=== PATIENT | female | born 2000 | race African-American/Black ===

== ENCOUNTER 2024-01-17 04:13 | Inpatient (IN) | payer BC ==
[2024-01-17] MEDS ORDERED: METHYLERGONOVINE 0.2 MG/ML 1 ML AMP IM PRN (04:26)
[2024-01-17] MEDS ORDERED: miSOPROStoL 200 MCG TAB PO PRN (04:26)
[2024-01-17] MEDS ORDERED: LIDOCAINE 0.5% (PF) 5 MG/ML (50 ML SDV) SQ PRN (04:26)
[2024-01-17] MEDS ORDERED: OXYTOCIN 10 UNIT/ML 1 ML VIAL IM PRN (04:26)
[2024-01-17] MEDS ORDERED: CARBOPROST TROMETHAMINE 250 MCG/ML 1 ML AMP IM PRN (04:26)
[2024-01-17] MEDS ORDERED: TRANEXAMIC 1,000 MG/100ML-NACL 1,000 MG in EMPTY BAG 1 BAG IV PRN (04:26)
[2024-01-17] MEDS ORDERED: TERBUTALINE 1 MG/ML VIAL SQ PRN (04:26)
[2024-01-17] MEDS ORDERED: OXYTOCIN 30 UNITS/500 ML NS 30 UNIT in SALINE 1 500ML.BAG IV SCH (04:30)
[2024-01-17] MEDS: LACTATED RINGERS 1,000 ML IV SCH (05:00)
[2024-01-17] MEDS: PENICILLIN G POTASSIUM 5,000,000 UNIT in DEXTROSE 5% IN WATER 100 ML IVPB STA (05:08)
[2024-01-17 05:16] LABS: Appearance,Urine Cloudy (Clear); Bacteria,Urine Moderate /hpf; Bilirubin,Urine Negative (Negative); Blood,Urine Trace (Negative); Color,Urine Colorless; Glucose,Urine (UA) Negative (Negative); Hyaline Casts,Urine 1 /lpf (0-2); Ketones,Urine Negative (Negative); Leukocyte Esterase,Urine Large (Negative); Mucus,Urine Rare /hpf; Nitrite,Urine Negative (Negative); Protein,Urine Negative (Negative); RBC,Urine 4 /hpf (0-5); Specific Gravity,Urine 1.011 (1.001-1.035); Squamous Epithelial Cell,Urine 8 /hpf (0-4); Urobilinogen,Urine <2.0 mg/dL (<2.0); WBC,Urine 110 /hpf (0-5)
[2024-01-17 05:17] LABS: Amphetamine Screen,Urine Not Detected (NotDetected); Barbiturate Screen,Urine Not Detected (NotDetected); Benzodiazepines Screen,Urine Not Detected (NotDetected); Cocaine Screen,Urine Not Detected (NotDetected); Methadone Screen, Urine Not Detected (NotDetected); Opiate Screen,Urine Not Detected (NotDetected); Oxycodone Screen, Urine Not Detected (NotDetected); Phencyclidine Screen,Urine Not Detected (NotDetected); Tricyclic Antidepressant,Urine Not Detected (NotDetected); Urn Cannabinoid Scrn Not Detected (NotDetected)
[2024-01-17 05:17] LABS: Basophils % (A) 0 %; Eosinophils % (A) 1 %; HGB 9.9 gm/dL (11.4-16.0); Lymphocytes # (A) 1.1 k/uL (1.0-4.8); Lymphocytes % (A) 22 %; MCH 28.4 pg (25.0-35.0); MCHC 31.9 g/dL (31.0-37.0); MCV 89.1 fL (80.0-100.0); Mean Platelet Volume 9.8; Monocytes # (A) 0.4 k/uL (0-1.0); Monocytes % (A) 8 %; Neutrophils # (A) 3.4 k/uL (1.3-7.7); Neutrophils % (A) 67 %; Platelet Count 160 k/uL (150-450); RBC 3.47 m/uL (3.80-5.40); RDW 13.9 % (11.5-15.5)
[2024-01-17] MEDS ORDERED: fentaNYL (PF) 50 MCG/ML 5 ML AMP ONE (05:33)
[2024-01-17] MEDS ORDERED: SODIUM CHLORIDE 0.9% 250 ML BAG ONE (05:33)
[2024-01-17] MEDS ORDERED: ROPIVACAINE 5 MG/ML 30 ML VIAL ONE (05:33)
[2024-01-17] MEDS: PENICILLIN G POTASSIUM 2,500,000 UNIT in DEXTROSE 5% IN WATER 100 ML IVPB SCH (09:15)
[2024-01-17 09:36] LABS: Hepatitis B Surface Antigen Nonreactive (Nonreactive)
--- NOTE | 2024-01-17 10:07 | P.MSEPDOC ---
Presenting Problems - Arrival Data Date of Arrival on Unit: 01/17/24 Time of Arrival on Unit: 04:20 Mode of Transport: Stretcher - Complaint OB-Reason for Admission/Chief Complaint: Possible Onset of Labor Medical History - Information : 5 Para: 3 Term: 3 : 0 Abortions: Spontaneous or Elective: 1 Number of Living Children: 3 - Gestational Age Gestational Age by JOHN (wks/days): 38 Weeks and 3 Days Review of Systems - Review of Systems Constitutional: No problems Breast: No problems ENT: No problems Cardiovascular: No problems Respiratory: No problems Gastrointestinal: No problems Genitourinary: No problems Musculoskeletal: No problems Neurological: No problems Skin: No problems Vital Signs - Temperature Temperature: 97.0 F Temperature Source: Temporal Artery Scan - Pulse Right Pulse Rate: 95 Pulse Assessment Method: Pulse Oximetry - Respirations Respiratory Rate: 17 Oxygen Delivery Method: Room Air O2 Sat by Pulse Oximetry: 96 - Blood Pressure Right Arm Blood Pressure: 112/57 Blood Pressure Mean: 75 Blood Pressure Source: Automatic Cuff Medical Screen Scoring - Cervical Exam Dilation (cm): 5.5 Effacement (%): 80 Station: -2 Membranes: Intact - Uterine Contractions Frequency From (mins): 2 Frequency To (mins): 3 Duration From (seconds): 60 Duration To (seconds): 80 Intensity: Moderate Resting: Soft to palpation - Assessment - Baby A Baseline FHR: 140 Heart Rate - NICHD Category: Category I (Normal) NST: Reactive Physician Notification - Physician Notified Physician Notified Date: 01/17/24 Physician Notified Time: 04:13 Physician: Jolanta Dubois New Order Received: (Admit) Maternal Triage Index - Maternal Triage Index Presenting for scheduled procedure w/no complaint: No - Stat/Priority 1 Stat Priority 1: No - Urgent/Priority 2 Urgent Priority 2: Yes Provider Notified: Silvino Provider Notified Time: 04:13 Criteria Met for Priority 2: regular ctx Disposition - Disposition OB Disposition: Admit Transferred to:: [facility] I agree with the RN Medical Screening Exam: Yes Physician's MSE Comment: I have neither seen nor examined the patient Case reviewed; plan agreed upon as documented in EMR&OBIX.: Yes Diagnosis: MATERNAL CARE FOR PROBLEM, UNSP, THIRD * DO NOT USE *
--- NOTE | 2024-01-17 10:12 | P.HPOB ---
History of Present Illness H&P Date: 01/17/24 Chief Complaint: contractions Ms. Jackson is a 23 year old at 38 weeks and 3 days with EDC of 01/27/2023 by early US who presents to L&D with regular, painful contractions and is found to be dilated to 5 centimeters with a bulging bag. The patient has received regular care in [facility]. She moved to [place] within the past week. Her records are not available for review at this time, but a release of records has been sent. She does believe that she is GBS positive. She has also been anemic throughout the . Obstetric history: 3 full-term vaginal delivery, no complications during or delivery Past medical history: Patient denies Medications: vitamins, iron Past surgical history: I&D of pilonidal cyst x2 Past Medical History Additional Past Medical History / Comment(s): GDM x2 previous pregnancies History of Any Multi-Drug Resistant Organisms: None Reported Additional Past Surgical History / Comment(s): pilonidal cyst x2 Past Anesthesia/Blood Transfusion Reactions: No Reported Reaction Past Psychological History: No Psychological Hx Reported Smoking Status: Never smoker Past Alcohol Use History: None Reported Past Drug Use History: None Reported Medications and Allergies Home Medications Medication Instructions Recorded Confirmed Type Vit No.179/Iron/Folic 1 each PO DAILY 01/17/24 01/17/24 History [ Tablet] Allergies Allergy/AdvReac Type Severity Reaction Status Date / Time No Known Allergies Allergy Verified 01/17/24 04:16 Exam Vital Signs Temp Pulse Resp BP Pulse Ox 01/17/24 04:15 97.0 F L 95 17 112/57 96 Intake and Output 01/16/24 01/17/24 01/17/24 22:59 06:59 14:59 Output Total 30 Balance -30 Output: Urine 30 Other: # Voids 1 Weight 76.204 kg Focused physical exam is performed. This is a healthy-appearing in no apparent distress. Breathing is non-labored. Abdomen is gravid and non-tender. Cervical exam is 8.5 cm, 90% effacement, -2 station. A forebag is appreciated and ruptured with clear fluid noted. Extremities non-tender and non- edematous. heart tones are Category I and tocometer is graphing contractions every 2-4 minutes. Results Result Diagrams: 01/17/24 04:50 01/17/24 04:50 Abnormal Lab Results - Last 24 Hours (Table) 01/17/24 01/17/24 01/17/24 Range/Units 04:10 04:50 04:50 RBC 3.47 L (3.80-5.40) m/uL Hgb 9.9 L (11.4-16.0) gm/dL Hct 31.0 L (34.0-46.0) % Urine Appearance Cloudy H (Clear) Urine Blood Trace H (Negative) Ur Leukocyte Esterase Large H (Negative) Urine WBC 110 H (0-5) /hpf Ur Squamous Epith Cells 8 H (0-4) /hpf Urine Bacteria Moderate H (None) /hpf Urine Mucus Rare H (None) /hpf Rubella IgG Antibody 49.10 H (0.00-9.00) IU/mL Assessment and Plan Assessment: 23 year old at 38 weeks and 3 days in active labor Plan: Admit, clear liquid diet, s/p 2 doses of PCN for GBS ppx, s/p epidural, s/p SROM followed by rupture of forebag, expectant management, continuous EFM and tocometer. Anticipate vaginal delivery.
[2024-01-17] MEDS ORDERED: diphenhydrAMINE 50 MG CAP PO PRN (11:21)
[2024-01-17] MEDS ORDERED: SIMETHICONE 80 MG CHEWABLE PO PRN (11:21)
[2024-01-17] MEDS ORDERED: LANOLIN CREAM 1 GM TUBE TOPICAL PRN (11:21)
[2024-01-17] MEDS ORDERED: BENZOCAINE/MENTHOL SPRAY 1 GM/SPRAY AEROSOL TOPICAL PRN (11:21)
[2024-01-17] MEDS ORDERED: diphenhydrAMINE 50 MG/ML 1 ML VIAL IVP PRN ×2 (11:21)
[2024-01-17] MEDS ORDERED: ACETAMINOPHEN TAB 325 MG TAB PO PRN (11:21)
[2024-01-17] MEDS ORDERED: ZOLPIDEM 5 MG TAB PO PRN (11:21)
[2024-01-17] MEDS ORDERED: diphenhydrAMINE 25 MG CAP PO PRN (11:21)
[2024-01-17] MEDS ORDERED: IBUPROFEN 600 MG TAB PO PRN (11:21)
[2024-01-17] MEDS ORDERED: HYDROCORTISONE 2.5% RECTAL CREAM 30 GM TUBE RECTAL PRN (11:21)
--- NOTE | 2024-01-17 11:21 | P.PROBDLV ---
Vaginal Delivery Note - . Vaginal Delivery Note: DATE OF SERVICE: 01/17/2024 PROCEDURE: Normal Vaginal Delivery ATTENDING: Dr. Jolanta Dubois MD ESTIMATED BLOOD LOSS: 100 mL FINDINGS: VMI, Apgars 9/9. Weight 3545 grams (7#13oz) PROCEDURE: Ms. Jackson is a 23 year old at 38 weeks and 3 days by early US presenting to labor and delivery in labor. She received care in [place] and just moved to [place]. The has been complicated by ultrasound finding of clubbed feet. Otherwise, the patient denies any complications. Records are not available for reivew at this time. SROM occurred at 817 revealing clear amniotic fluid. The patient received epidural anesthesia per her request. The patient was completely dilated at 1034. She pushed effectively with Category II FHTs. A viable male was delivered at 1105 without difficulty. The was placed on the maternal abdomen and bulb suctioned. The infant was noted to be spontaneously crying. Cord was clamped and cut after a 2-minute delay. The was handed off to the pediatric team. Placenta was delivered whole with gentle cord traction at 1109. Oxytocin was started to facilitate uterine tone. Uterine fundus was found to be firm and below the umbilicus upon fundal massage. Thorough examination of the cervix, vagina, periurethral area, and perineum revealed no lacerations. The patient is stable and allowed to begin the bonding process.
[2024-01-17] MEDS: IBUPROFEN ORAL SUSP 100 MG/5 ML CUP PO PRN (13:37)
[2024-01-17 17:12] VITALS: TEMP 98.3
[2024-01-17] MEDS: ACETAMINOPHEN ORAL SUSP 160 MG/5 ML CUP PO PRN (19:14)
[2024-01-17] MEDS: SENNOSIDES-DOCUSATE SODIUM 1 EACH TAB PO SCH (19:16)
[2024-01-18 05:50] LABS: Basophils % (A) 0 %; Eosinophils % (A) 1 %; HCT 25.8 % (34.0-46.0); HGB 8.6 gm/dL (11.4-16.0); Hypochromasia Slight; Lymphocytes % (A) 24 %; MCHC 33.4 g/dL (31.0-37.0); MCV 89.9 fL (80.0-100.0); Mean Platelet Volume 10.7; Monocytes # (A) 0.3 k/uL (0-1.0); Monocytes % (A) 6 %; Neutrophils # (A) 2.8 k/uL (1.3-7.7); Neutrophils % (A) 64 %; Platelet Count 114 k/uL (150-450); RBC 2.87 m/uL (3.80-5.40); RDW 14.2 % (11.5-15.5); WBC 4.3 k/uL (3.8-10.6)
[2024-01-18 08:33] VITALS: BP 106/69; PULSE 84; RESP 18
--- NOTE | 2024-01-18 10:05 | P.DS ---
Providers Date of admission: 01/17/24 04:30 Expected date of discharge: 01/18/24 Attending physician: Jolanta Dubois MD Primary care physician: Stated None Hospital Course: Ms. Jackson is a 23 year old now PPD#1 s/p normal spontaneous vaginal delivery. She had all her care in [place] and recently moved to [place] within the past week. She denied any complications during the except club feet noted on utlrasound. She was GBS positive and did receive 2 doses of Penicillin G prior to delivery. Her delivery was uncomplicated. The patient is doing well this morning and had no acute events overnight. She has no complaints this morning. She reports minimal lochia, passing flatus, voiding without difficulty, ambulating, and eating/drinking without nausea or vomiting. Infant doing well at bedside, s/p circumcision. She denies chest pain, shortness of breathing, fevers, or chills overnight. She denies pain or swelling in the legs. restrictions are reviewed with the patient including pelvic r est for 6 weeks. The patient is encouraged to call the office if she experiences any heavy bleeding, foul-smelling discharge, breast complaints, or any if she has any other concerns. She will follow up in the office in 6 weeks for exam. She will go home with Motrin and Tylenol as needed for pain. All questions are answered. Assessment: 23 year old PPD#1 s/p Patient Condition at Discharge: Good Plan - Discharge Summary Discharge Rx Participant: No New Discharge Prescriptions: New Ibuprofen [Motrin] 600 mg PO Q6HR PRN #30 tab PRN Reason: Mild Pain (Scale 1 To 3) Acetaminophen Tab [Tylenol] 650 mg PO Q6H PRN #30 tab PRN Reason: Mild Pain (Scale 1 To 3) No Action Vit No.179/Iron/Folic [ Tablet] 1 each PO DAILY Discharge Medication List Vit No.179/Iron/Folic [ Tablet] 1 each PO DAILY 01/17/24 [History] Acetaminophen Tab [Tylenol] 650 mg PO Q6H PRN #30 tab 01/18/24 [Rx] Ibuprofen [Motrin] 600 mg PO Q6HR PRN #30 tab 01/18/24 [Rx] Follow up Appointment(s)/Referral(s): Jolanta Dubois MD [STAFF PHYSICIAN] - 6 Weeks Activity/Diet/Wound Care/Special Instructions: Instructions 1. Do not begin any exercise program for 3 weeks. 2. Do not resume sexual relations for 6 weeks or longer if uncomfortable. 3. You may take tub baths or showers at any time. 4. You may use tampons if desired after 6 weeks. 5. Keep any areas repaired with stitches clean and dry. 6. If you are not nursing, wear a good fitting, supportive bra during the day and limit fluid intake for at least 1 week to prevent breast engorgement. 7. Call the office, , within the next week to make appointment for your 6 week checkup if it has not already been made. 8. Report any of the following occurrences to the doctor promptly: a. Heavy, excessive bleeding b. Chills, fever c. Burning or frequency of urination d. Pain or redness and breasts if nursing e. Increasing pain or swelling of vulva (stitches). In addition to the above instructions, the following additional should be followed: 1. No heavy lifting or straining (exercising) until after 6 week checkup. 2. Keep abdominal incision clean and dry: You may wear a dressing if more comfortable. 3. Make office appointment for 2 weeks after delivery date. Discharge Disposition: HOME SELF-CARE
[2024-01-18] MEDS: FERROUS SULFATE 325 MG TAB PO SCH (12:43)
[2024-01-18 15:55] LABS: HIV 2 AB Non-Reactive (Non-Reactive); HIV AB P24 Non-Reactive (Non-Reactive); HIV P24 AG Non-Reactive (Non-Reactive)
[2024-01-19 13:22] LABS: C. trachomatis,PCR Negative (Negative)
== END 2024-01-18 14:00 | disposition home or self-care (01) | DRG 807 ==
LOC: FBPOP 04:13 → 4FBP 04:30
PROVIDERS: ADMIT Obstetrics & Gynecology; ATTEND Obstetrics & Gynecology
PROC: 10907ZC Drainage of Amniotic Fluid, Therapeutic from Products of Conception, Via Natural or Artificial Opening (ICD-10-PCS; principal; 2024-01-17)
PROC: 10E0XZZ Delivery of Products of Conception, External Approach (ICD-10-PCS; principal; 2024-01-17)
DX: O99.824 Streptococcus B carrier state complicating childbirth (principal); O99.02 Anemia complicating childbirth; D64.9 Anemia, unspecified; O35.8XX0 Maternal care for other (suspected) fetal abnormality and damage, not applicable or unspecified; Z86.32 Personal history of gestational diabetes; Z28.310 Unvaccinated for COVID-19; Z3A.38 38 weeks gestation of pregnancy; Z37.0 Single live birth
CPT/HCPCS: 36415; 59025; 80306; 81001; 82947; 85025; 86762; 86780; 86850; 86900; 86901; 87340; 87390; 87491; 87591; 96360; 96365; 96367; 99214